=== PATIENT | female | born 1985 | race Caucasian/White ===

== ENCOUNTER 2019-07-18 05:21 | Emergency (ER) | payer MEDICAID ==
[~2019-07-18] VITALS: Ht 165.1 cm; Wt 81.6 kg
[2019-07-18 06:33] LABS: Basophils # (auto) 0.1 uL; Basophils % (auto) 0.5 % (0.0-2.0); Eosinophils # (auto) 0.1 uL; Eosinophils % (auto) 0.7 % (0.0-7.0); Hematocrit 42.6 % (36.0-46.0); Hemoglobin 14.7 g/dL (12.2-16.2); Lymphocytes # (auto) 2.7 uL; Lymphocytes % (auto) 25.3 % (10.0-50.0); Mean Corpuscular Hemoglobin 32.2 pg (28.0-32.0); Mean Corpuscular Hgb Conc. 34.5 g/dL (32.0-36.0); Mean Corpuscular Volume 93.3 fL (80.0-100.0); Monocytes % (auto) 9.5 % (0.0-12.0); Neutrophils # (auto) 6.7 uL; Platelet Count (auto) 306 10^3/uL (140-450); Red Blood Cells 4.56 10^6/uL (4.0-5.20); Red Cell Distribution Width 14.4 % (11.8-14.3); White Blood Cell 10.5 10^3/uL (4.4-10.8)
[2019-07-18 06:58] LABS: Albumin 3.8 g/dL (3.4-5.0); Calcium 8.4 mg/dL (8.5-10.1); Potassium 3.5 mmol/L (3.5-5.1)
[2019-07-18 07:00] LABS: BUN/Creatinine Ratio 7.3
[2019-07-18 07:02] LABS: Bilirubin, Total 0.2 mg/dL (0.2-1.0); Total Protein 7.2 g/dL (6.4-8.2)
[2019-07-18] MEDS ORDERED: SODIUM CHLORIDE 0.9% 1,000 ML IV ONE (07:15)
[2019-07-18 07:27] LABS: Urine Bacteria NONE SEEN /hpf (None Seen); Urine Blood TRACE /uL (Negative); Urine Mucus FEW (None Seen); Urine Specific Gravity 1.005 (1.001-1.035); Urine WBC 8 /hpf (0 - 5)
[2019-07-18 07:41] LABS: Amphetamine Screen, Urine NEGATIVE (NEGATIVE); Barbiturate Scree,Urine NEGATIVE (NEGATIVE); Benzodiazephine Screen, Urine NEGATIVE (NEGATIVE); Cannabinoid Screen, Urine NEGATIVE (NEGATIVE); Cocaine Screen, Urine NEGATIVE (NEGATIVE); Opiate Scree,Urine NEGATIVE (NEGATIVE); Phencyclidine Screen, Urine NEGATIVE (NEGATIVE)
[2019-07-18] MEDS ORDERED: ACETAMINOPHEN 325 MG TAB PO ONE (07:45)
[2019-07-18 08:16] VITALS: BP 114/61
== END 2019-07-18 08:26 | disposition home or self-care (01) ==
LOC: ER 05:21
DX: S09.8XXA Other specified injuries of head, initial encounter (principal); F17.210 Nicotine dependence, cigarettes, uncomplicated; R42 Dizziness and giddiness; Z90.49 Acquired absence of other specified parts of digestive tract; W07.XXXA Fall from chair, initial encounter; Y93.89 Activity, other specified; Y92.89 Other specified places as the place of occurrence of the external cause; Y99.8 Other external cause status
CPT/HCPCS: 36415; 70450; 72125; 80053; 80307; 80320; 81001; 85025; 96360; 99284; J7030